=== PATIENT | female | born 1990 | race African-American/Black ===

== ENCOUNTER 2017-12-21 19:37 | Emergency (ER) | payer OTHER ==
[~2017-12-21] VITALS: Ht 165.1 cm; Wt 68.0 kg
[2017-12-22] MEDS ORDERED: HYDROcodone-ACET 10/325MG TAB PO ONE (01:45)
[2017-12-22] MEDS ORDERED: cefTRIAXone SOD 1,000 MG VL IM ONE (01:45)
[2017-12-22 01:50] VITALS: BP 117/78
== END 2017-12-22 02:48 | disposition home or self-care (01) ==
LOC: ER 19:37
DX: L02.31 Cutaneous abscess of buttock (principal)
CPT/HCPCS: 96372; 99283; J0696